=== PATIENT | female | born 2000 | race Caucasian/White ===

== ENCOUNTER 2022-05-15 22:16 | Inpatient (IN) | payer OTHER ==
[2022-05-16 00:11] VITALS: BMI 29.7
[2022-05-16] MEDS ORDERED: Morphine 2 MG/ML VIAL SLOW IVP PRN (00:14)
[2022-05-16] MEDS ORDERED: Sodium Chloride 0.9% 1,000 ML IV SCH (00:15)
[2022-05-16] MEDS ORDERED: traMADol HCl 50 MG TAB PO SCH (00:15)
[2022-05-16] MEDS: Acetaminophen 500 MG TAB PO SCH ×5 (00:23→23:21)
[2022-05-16] MEDS: Ibuprofen 600 MG TAB PO SCH ×4 (00:23→23:22)
[2022-05-16] MEDS ORDERED: hydrALAZINE 20 MG/ML VIAL SLOW IVP PRN (03:25)
[2022-05-16] MEDS ORDERED: Ondansetron PF 4 MG/2 ML Vial IVP PRN (03:25)
[2022-05-16] MEDS ORDERED: Promethazine HCl 25 MG/ML VIAL IM PRN ×2 (03:25→14:21)
[2022-05-16] MEDS ORDERED: traMADol HCl 50 MG TAB PO PRN (03:28)
[2022-05-16] MEDS: Sodium Chloride 0.9% 1,000 ML IV SCH ×3 (04:19→20:13)
[2022-05-16] MEDS: CEFAZOLIN 2 GM in Sodium Chloride 0.9% 100 ML IVPB SCH ×2 (04:19→12:53)
[2022-05-16 05:09] LABS: #Eosinphils 0.1 thou/uL (0.0-0.7); #Monocytes 0.8 thou/uL (0.11-0.59); %Basophils 0.4 % (0.0-1.0); %Eosinophils 0.6 % (0.0-10.0); %Lymphocytes 27.4 % (28.0-48.0); %Monocytes 7.3 % (0.0-4.0); %Neutrophils 64.2 % (31.0-61.0); Hemoglobin 11.5 g/dL (12.0-16.0); Mean Corpuscular HGB CONC 32.6 g/dL (32.0-36.0); Mean Corpuscular Hemoglobin 29.4 pg (25.0-35.0); Mean Platelet Volume 7.6 fL (7.4-10.4); Platelet Count 255 thou/uL (130-400); RBC Distribution Width 12.5 % (11.5-14.5); Red Blood Cell (RBC) Count 3.92 mill/uL (4.00-5.20)
[2022-05-16 05:34] LABS: Anion Gap 12 mmol/L (10-20); BUN (Urea Nitrogen) 9 mg/dL (7.0-18.7); Calc. Creatinine Clearance 144 mL/min (70-130); Calcium 8.5 mg/dL (7.8-10.44); Carbon Dioxide 24 mmol/L (22-29); Chloride 108 mmol/L (98-107); Estimated GFR 101; Glucose 86 mg/dL (70-105); Magnesium 1.8 mg/dL (1.7-2.2); Phosphorus 3.9 mg/dL (2.3-4.7); Potassium 3.9 mmol/L (3.5-5.1); Sodium 140 mmol/L (136-145)
[2022-05-16 05:41] LABS: INR-International Normal Ratio 1.1; PTT 29.8 sec (22.9-36.1); Prothrombin Time 13.9 sec (12.0-14.7)
[2022-05-16] MEDS: traMADol HCl 50 MG TAB PO SCH ×4 (05:43→23:22)
[2022-05-16] MEDS: Polyethylene Glycol 3350 17 GM Packet PO SCH (07:40)
[2022-05-16] MEDS ORDERED: CEFAZOLIN 2 GM in Sodium Chloride 0.9% 100 ML IVPB SCH (07:45)
[2022-05-16] MEDS: Famotidine 20 MG TAB PO SCH ×2 (07:50→20:13)
[2022-05-16] MEDS: Senokot S 8.6-50 MG TAB PO SCH ×2 (07:51→20:13)
[2022-05-16] MEDS ORDERED: Midazolam HCl 2 mg/2 ml Vial ONE (11:55)
[2022-05-16] MEDS ORDERED: Fentanyl 100 MCG/2 ML VIAL ONE (11:55)
[2022-05-16] MEDS ORDERED: Dexamethasone 4 mg/ml Vial ONE (11:56)
[2022-05-16] MEDS ORDERED: CEFAZOLIN 2 GM VIAL ONE (12:19)
[2022-05-16] MEDS ORDERED: Sodium Chloride 0.9% 100 ML ONE (12:19)
[2022-05-16] MEDS ORDERED: fentaNYL Citrate/PF 100 MCG/2 ML SYRINGE ONE (12:30)
[2022-05-16] MEDS ORDERED: PROPOFOL 200 MG/20 ML VIAL ONE (12:40)
[2022-05-16] MEDS ORDERED: Dexamethasone 20 MG/5 ML VIAL ONE (12:40)
[2022-05-16] MEDS ORDERED: Ondansetron PF 4 MG/2 ML Vial ONE (12:40)
[2022-05-16] MEDS ORDERED: Lidocaine 1% PF 5 ML VIAL ONE (12:40)
[2022-05-16] MEDS ORDERED: ePHEDrine 50 MG/ML VIAL ONE (12:40)
[2022-05-16] MEDS ORDERED: Bupivacaine HCl 0.5%/Epinephrine 1:200,000/PF 30 ml Vial ONE (12:40)
[2022-05-16] MEDS ORDERED: Promethazine HCl 25 MG/ML VIAL IVPB PRN (14:21)
[2022-05-16] MEDS ORDERED: Ondansetron HCl/PF 4 MG/2 ML Vial IVP PRN (14:21)
[2022-05-16] MEDS: CEFAZOLIN 2 GM VIAL IVPB SCH (20:13)
[2022-05-16] MEDS ORDERED: ceFAZolin 2 GM/Dextrose 50 ML 2 GM in Premix Bag 1 BAG IVPB SCH (21:00)
[2022-05-17] MEDS ORDERED: diphenhydrAMINE 25 MG CAP PO PRN (04:15)
[2022-05-17] MEDS: CEFAZOLIN 2 GM VIAL IVPB SCH (04:26)
[2022-05-17] MEDS: Sodium Chloride 0.9% 1,000 ML IV SCH (04:26)
[2022-05-17] MEDS: Acetaminophen 500 MG TAB PO SCH (06:28)
[2022-05-17] MEDS: traMADol HCl 50 MG TAB PO SCH (06:28)
[2022-05-17 07:42] VITALS: BP 115/74; TEMP 97.8
[2022-05-17] MEDS: Senokot S 8.6-50 MG TAB PO SCH (08:35)
[2022-05-17] MEDS: Ibuprofen 600 MG TAB PO SCH (08:35)
[2022-05-17] MEDS: Polyethylene Glycol 3350 17 GM Packet PO SCH (08:36)
[2022-05-17] MEDS: Famotidine 20 MG TAB PO SCH (08:36)
== END 2022-05-17 10:25 | disposition home or self-care (01) | DRG 505 ==
LOC: SURG A 23:57
PROVIDERS: ADMIT Surgery; ATTEND Surgery
PROC: 0QSL04Z Reposition Right Tarsal with Internal Fixation Device, Open Approach (ICD-10-PCS; principal; 2022-05-16)
DX: S92.101B Unspecified fracture of right talus, initial encounter for open fracture (principal); W17.89XA Other fall from one level to another, initial encounter; Y93.31 Activity, mountain climbing, rock climbing and wall climbing; Y92.89 Other specified places as the place of occurrence of the external cause
CPT/HCPCS: 36415; 76000; 83735; 84100; 85025; 85610; 85730; 86850; 86900; 86901; J0690; J1100; J2250; J2270; J2405; J2704; J3010; J3490; J7050